=== PATIENT | male | born 1965 | race Caucasian/White ===

== ENCOUNTER 2021-12-17 09:08 | Emergency (ER) | payer OTHER ==
[~2021-12-17 09:08] MED LIST: HYGROTON TAB 2525 MG PO; MEN'S MULTI-VI1 EACH PO; NORVASC10 MG PO; TOPROL XL100 MG PO
[2021-12-17 09:52] LABS: HEMOGLOBIN 16.3 gm/dl (14.0-17.5); RED BLOOD COUNT 5.08 M/UL (4.20-5.50); WHITE BLOOD COUNT 13.8 K/UL (4.5-11.0)
[2021-12-17 10:14] LABS: BUN/CREATININE RATIO 12 (0-10)
[2021-12-17 13:20] LABS: MONONUCLEAR CELLS 7 (75-100); POLYMORPHONUCLEAR % 93 (0-25); RBC (AUTOMATED) 700 (0-2000); WBC (AUTOMATED) 29252 (0-200)
[2021-12-17] MEDS ORDERED: COLCHICINE 0.60.6 MG PO (13:55)
[2021-12-17] MEDS ORDERED: IBUPROFEN600 MG PO (13:55)
[2021-12-20 14:14] LABS: PROTEIN, BODY FLUID 4.9 g/dL (.)
== END 2021-12-17 14:29 | disposition home or self-care (01) ==
LOC: ER1 09:08
PROVIDERS: Emergency Medicine
DX: M10.9 Gout, unspecified (principal); E87.6 Hypokalemia; I10 Essential (primary) hypertension
CPT/HCPCS: 80053; 82945; 83605; 84157; 84550; 85025; 85652; 86140; 87040; 87205; 96361; 96374; 96375; 99283; J1100; J2270; J2405